=== PATIENT | female | born 1995 | race Asian ===

== ENCOUNTER 2018-02-18 22:48 | Emergency (ER) | payer OTHER ==
[~2018-02-18] VITALS: Ht 152.4 cm; Wt 51.3 kg
[2018-02-18 22:49] VITALS: Ht 152.4 cm; Wt 51.3 kg
[2018-02-18 23:56] VITALS: BP 137/86
== END 2018-02-18 23:56 | disposition home or self-care (01) ==
LOC: ED 22:48
DX: G51.0 Bell's palsy (principal)
CPT/HCPCS: J7512

== ENCOUNTER 2018-06-04 16:09 | Emergency (ER) | payer OTHER ==
[~2018-06-04] VITALS: Ht 165.1 cm; Wt 46.3 kg
[2018-06-04 16:14] VITALS: Ht 165.1 cm; Wt 46.3 kg
[2018-06-04 17:51] VITALS: BP 113/56
== END 2018-06-04 17:51 | disposition home or self-care (01) ==
LOC: ED 16:09
DX: K08.89 Other specified disorders of teeth and supporting structures (principal)

== ENCOUNTER 2018-11-29 23:02 | Emergency (ER) | payer OTHER ==
[~2018-11-29] VITALS: Ht 152.4 cm; Wt 43.5 kg
[2018-11-29 23:09] VITALS: Ht 152.4 cm; Wt 43.5 kg
[2018-11-30 00:44] VITALS: BP 109/67
== END 2018-11-30 00:44 | disposition home or self-care (01) ==
LOC: ED 23:02
DX: L50.9 Urticaria, unspecified (principal)
CPT/HCPCS: J7512; Q0163